=== PATIENT | female | born 1955 | race Caucasian/White ===

== ENCOUNTER → 2017-06-22 | Outpatient (CLI) | payer BC ==
[~2017-06-22] MED LIST: ASPIR-LOW81 MG PO; ASPIRIN E.C. 8181 MG PO; BLACK COHOSH PO; CALCIUM PO; CEPHALEXIN500 M1 PO; CO Q-1050 MG PO; CQ10; FLAXSEED OIL1 CAP PO; LEVOTHYROXINE0.1 MG PO; NITROSTAT0.4 MG/TAB SL; SUPER EPA1 SGL PO; SYNTHROID0.088 MG/T PO; VIT PO; VITAMIN B121000 MC2 PO; VITAMIN D1000 IU PO; ZOCOR 40MG40 MG PO; ZOCOR40 MG PO; ZOVIRAX400 MG PO; ZYRTEC 10MG10 MG PO
== END ==
LOC: MC.RAD 07:00
DX: Z12.31 Encounter for screening mammogram for malignant neoplasm of breast (principal)

== ENCOUNTER → 2017-06-29 | Outpatient (REF) | LOC: WSOH 11:23 | DX: Z11.1 Encounter for screening for respiratory tuberculosis (principal) ==

== ENCOUNTER → 2018-03-15 | Outpatient (CLI) | payer BC | LOC: COL.RAD 13:04 | DX: M17.0 Bilateral primary osteoarthritis of knee (principal) ==

== ENCOUNTER 2019-06-06 05:57 | Day surgery (SDC) | payer BC ==
[~2019-06-06] VITALS: Ht 162.6 cm; Wt 73.7 kg
[2019-06-06] MEDS ORDERED: SYNTHROID0.1 MG/TAB PO (06:25)
[2019-06-06] MEDS ORDERED: ZOCOR 20MG20 MG PO (06:25)
[2019-06-06] MEDS ORDERED: CALCIUM CARBON650 M2 PO (06:26)
[2019-06-06] MEDS ORDERED: HEMP EXTRACT PO (06:27)
[2019-06-06 06:28] VITALS: BP 122/69; PULSE 81; TEMP 97.6
[2019-06-06 07:35] VITALS: BP 104/66; PULSE 66
--- NOTE | 2019-06-06 07:35 | NUR ---
Patient returns to [facility] per cart and transfers from cart to recliner with one person assist. Temp 97.8 and room air sats 96%. Denies pain or nausea. Given coffee and muffin. Spouse in room. IV fluids infusing.
[2019-06-06 07:50] VITALS: BP 120/80; PULSE 61
--- NOTE | 2019-06-06 07:50 | NUR ---
Sipping coffee and eating muffin. Offers no complaints.
[2019-06-06 08:05] VITALS: BP 97/62; PULSE 64
--- NOTE | 2019-06-06 08:05 | NUR ---
Resting and talking with spouse.
[2019-06-06 08:20] VITALS: BP 96/63; PULSE 59
--- NOTE | 2019-06-06 08:20 | NUR ---
Dr. Baron here to talk with the patient and all questions answered. IV discontinued and site is free of redness. Allowed to dress self.
--- NOTE | 2019-06-06 08:31 | NUR ---
Given dismissal instructions and voices understanding of these. Dismissed to home per private vehicle driven by spouse and taken to the front door per wheelchair and assisted into car.
== END 2019-06-06 08:31 | disposition home or self-care (01) ==
LOC: SDCO 05:57
DX: Z12.11 Encounter for screening for malignant neoplasm of colon (principal); E78.00 Pure hypercholesterolemia, unspecified; Z86.010 Personal history of colon polyps; Z80.0 Family history of malignant neoplasm of digestive organs; Z90.710 Acquired absence of both cervix and uterus
CPT/HCPCS: J2250; J2405; J3010; J7030